=== PATIENT | female | born 1940 | race Caucasian/White ===

== ENCOUNTER 2020-08-19 20:46 | Inpatient (IN) ==
[2020-08-19] MEDS ORDERED: Propofol 10 mg/ml 100 ML BTL 100 ML ONE (20:53)
[2020-08-19] MEDS ORDERED: fentaNYL 100 mcg/2 ml 50 MCG/ML VIAL ONE (20:53)
[2020-08-19] MEDS: fentaNYL 100 mcg/2 ml 50 MCG/ML VIAL IV ONE (20:54)
[2020-08-19] MEDS ORDERED: NS 0.9% 1000 ml BAG 1,000 ML IV ONE (20:59)
[2020-08-19] MEDS ORDERED: Rocuronium 50 mg VIAL 10 mg/ml 5 ml VIAL (50 mg) IV ONE (21:00)
[2020-08-19] MEDS ORDERED: Etomidate 20 mg/10 ml 2 MG/ML 10 ml VIAL IV ONE (21:00)
[2020-08-19] MEDS ORDERED: Propofol 10 mg/ml 100 ML BTL 100 ML IV ONE (21:01)
[2020-08-19] MEDS ORDERED: Atropine 0.1 MG/ML 10 ml SYR (1 mg) IV PUSH ONE (21:03)
[2020-08-19 21:25] LABS: ABS Basophils 0.1 10^3/ul (0-0.2); ABS Eosinophils 0.3 10^3/ul (0-0.6); ABS Lymphocytes 4.9 10^3/ul (1.0-4.8); ABS Monocytes 1.1 10^3/ul (0-0.8); ABS Neutrophils 5.9 10^3/ul (1.5-7.7); Eosinophil % 2.7 %; Hematocrit 33 % (35-47); Hemoglobin 10.9 g/dL (12.0-16.0); Lymphocyte % 39.6 %; Mean Corpuscular HGB Conc 33 g/dL (31-36); Mean Corpuscular Hemoglobin 32 pg (27-31); Mean Corpuscular Volume 96 fL (80-97); Mean Platelet Volume 8.2 fL (7.4-10.4); Platelet Count 475 10^3/uL (150-450); Red Cell Distribution Width 18 % (10-15); White Blood Count 12.3 10^3/uL (3.5-10.8)
[2020-08-19 21:27] LABS: INR 1.68 (0.82-1.09)
[2020-08-19 21:41] LABS: ALT 78 U/L (7-52); AST 53 U/L (13-39); Albumin/Globulin Ratio 1.1 (1-3); Alkaline Phosphatase 205 U/L (34-104); BUN/Creatinine Ratio 27.4 (8-20); Blood Urea Nitrogen 51 mg/dL (6-24); C Reactive Protein 24.32 mg/L (<8.01); Calcium 8.9 mg/dL (8.6-10.3); Chloride 92 mmol/L (101-111); EGFR African American 31.6 (>60); EGFR Non-African American 26.1 (>60); Globulin 3.5 g/dL (2-4); Glucose 311 mg/dL (70-100); Sodium 122 mmol/L (135-145); Total Protein 7.5 g/dL (6.4-8.9)
[2020-08-19 21:44] LABS: Anion Gap 16 mmol/L (2-11); CO2 Carbon Dioxide 14 mmol/L (22-32); Potassium 6.5 mmol/L (3.5-5.0)
[2020-08-19] MEDS ORDERED: Calcium Gluconate 2 GM in NS 0.9% 100 ml BAG 100 ML IV ONE (21:49)
[2020-08-19] MEDS ORDERED: Dextrose 50% Syringe 50 ml 25 GM/50 ML SYRINGE IV PUSH ONE ×2 (21:50→23:04)
[2020-08-19] MEDS ORDERED: Atropine 0.1 MG/ML 10 ml SYR (1 mg) ONE (21:55)
[2020-08-19] MEDS ORDERED: Lidocaine 1% VIAL 10 MG/ML VIAL ONE (22:24)
[2020-08-19] MEDS ORDERED: Heparin 2 UNITS/ML 1000 mls 1,000 ML IV ONE (22:24)
[2020-08-19 22:33] LABS: Troponin I 0.04 ng/mL (<0.03)
[2020-08-19] MEDS ORDERED: Vancomycin 1,000 MG in NS 0.9% 250 ml 250 ML IVPB ONE (22:52)
[2020-08-19 23:32] LABS: % Iron Saturation 12 % (15-55); Digoxin 1.5 ng/ml (0.8-2.0); Iron 42 ug/dL (50-212); Total Iron Binding Capacity 354 mcg/dL (250-450); Transferrin 253 mg/dL (203-362); Unsaturated Iron Binding < 339 ug/dL
[2020-08-20] MEDS ORDERED: Lactated Ringers 1000 ml BAG 1,000 ML IV ONE (00:08)
[2020-08-20] MEDS ORDERED: Midazolam 5 mg/5 ml VIAL 1 mg/ml 5 ml VIAL (5 mg) ONE (00:14)
[2020-08-20] MEDS ORDERED: fentaNYL 100 mcg/2 ml 50 MCG/ML VIAL IV SLOW PU PRN ×2 (00:44→21:54)
[2020-08-20 00:46] LABS: Creatine Kinase 41 U/L (10-223)
[2020-08-20] MEDS ORDERED: Sodium Bicarb 8.4% Vial 50 ML 150 MEQ in D5W 1000 ml BAG 850 ML IV SCH (01:00)
[2020-08-20 01:19] LABS: ABS Lymphocytes 0.7 10^3/ul (1.0-4.8); ABS Monocytes 1.1 10^3/ul (0-0.8); ABS Neutrophils 9.7 10^3/ul (1.5-7.7); Eosinophil % 0.1 %; Hematocrit 27 % (35-47); Hemoglobin 9.3 g/dL (12.0-16.0); Lymphocyte % 5.9 %; Mean Corpuscular HGB Conc 34 g/dL (31-36); Mean Corpuscular Hemoglobin 32 pg (27-31); Mean Corpuscular Volume 93 fL (80-97); Mean Platelet Volume 7.5 fL (7.4-10.4); Platelet Count 374 10^3/uL (150-450); Red Blood Count 2.92 10^6 /uL (3.70-4.87); Red Cell Distribution Width 18 % (10-15); White Blood Count 11.5 10^3/uL (3.5-10.8)
[2020-08-20 01:28] LABS: INR 1.74 (0.82-1.09)
[2020-08-20 01:36] LABS: ALT 106 U/L (7-52); AST 109 U/L (13-39); Albumin 3.6 g/dL (3.2-5.2); Albumin/Globulin Ratio 1.1 (1-3); Alkaline Phosphatase 270 U/L (34-104); Blood Urea Nitrogen 58 mg/dL (6-24); CO2 Carbon Dioxide 18 mmol/L (22-32); Calcium 8.1 mg/dL (8.6-10.3); Chloride 91 mmol/L (101-111); EGFR African American 29.1 (>60); Globulin 3.4 g/dL (2-4); Glucose 364 mg/dL (70-100); Magnesium 2.4 mg/dL (1.9-2.7); Phosphorus 7.4 mg/dL (2.5-5.0); Sodium 121 mmol/L (135-145)
[2020-08-20] MEDS: Meropenem 1 GM PREMIX(*) 1 GM/50 ML BAG IV SCH ×3 (01:38→23:41)
[2020-08-20 01:48] LABS: Anion Gap 12 mmol/L (2-11); Potassium 6.5 mmol/L (3.5-5.0); Troponin I 0.13 ng/mL (<0.03)
[2020-08-20] MEDS ORDERED: SODIUM ZIRCONIUM CYCLOSILICATE 10 GM PACKET PO ONE ×2 (04:00→17:27)
[2020-08-20] MEDS ORDERED: Vancomycin per Pharmacy 1 EA NOTE FOLLOW UP PRN (04:05)
[2020-08-20 04:27] LABS: Urine Appearance Cloudy; Urine Bilirubin Negative (Negative); Urine Blood Negative (Negative); Urine Color Yellow; Urine Glucose Negative (Negative); Urine Ketones Negative (Negative); Urine Nitrite Negative (Negative); Urine Protein Negative (Negative); Urine Specific Gravity 1.011 (1.010-1.030); Urine Urobilinogen Negative (Negative)
[2020-08-20] MEDS ORDERED: Senna TAB 8.6 mg TAB PO PRN (04:41)
[2020-08-20 04:43] LABS: Urine Potassium Concentration 58.6 mmol/L
[2020-08-20] MEDS ORDERED: Insulin Infusion 100unit/100mL 100 UNIT/100 ML BAG IV SCH (05:00)
[2020-08-20 05:12] LABS: TSH Ultra Thyroid Stim Horm 7.26 mcIU/mL (0.34-5.60)
[2020-08-20 05:35] LABS: ABS Lymphocytes 0.7 10^3/ul (1.0-4.8); ABS Monocytes 0.8 10^3/ul (0-0.8); ABS Neutrophils 7.7 10^3/ul (1.5-7.7); Eosinophil % 0.1 %; Hematocrit 26 % (35-47); Hemoglobin 8.8 g/dL (12.0-16.0); Lymphocyte % 7.3 %; Mean Corpuscular HGB Conc 34 g/dL (31-36); Mean Corpuscular Hemoglobin 31 pg (27-31); Mean Corpuscular Volume 93 fL (80-97); Mean Platelet Volume 7.1 fL (7.4-10.4); Platelet Count 340 10^3/uL (150-450); Red Blood Count 2.82 10^6 /uL (3.70-4.87); Red Cell Distribution Width 18 % (10-15); White Blood Count 9.2 10^3/uL (3.5-10.8)
[2020-08-20] MEDS: Propofol 10 mg/ml 100 ML BTL 100 ML IV SCH ×4 (05:37→23:25)
[2020-08-20 05:54] LABS: Albumin 3.3 g/dL (3.2-5.2); Albumin/Globulin Ratio 1.1 (1-3); BUN/Creatinine Ratio 29.4 (8-20); Calcium 8.3 mg/dL (8.6-10.3); EGFR African American 32.8 (>60); EGFR Non-African American 27.1 (>60); Globulin 2.9 g/dL (2-4); Total Bilirubin 0.4 mg/dL (0.2-1.0); Total Protein 6.2 g/dL (6.4-8.9)
[2020-08-20] MEDS ORDERED: Heparin 5000 UNITS/ML 1 mL VIAL SUBCUT SCH (06:00)
[2020-08-20 06:03] LABS: Potassium 5.8 mmol/L (3.5-5.0)
[2020-08-20] MEDS ORDERED: Hydrocortisone INJ 100 MG/2ML 2 ML VIAL IV SCH (07:00)
[2020-08-20] MEDS ORDERED: Hydrocortisone INJ 100 MG/2ML 2 ML VIAL IV ONE (07:23)
[2020-08-20] MEDS: Heparin DRIP 25,000 UNITS BAG 25,000 UNITS/500 ML BAG IV SCH (09:00)
[2020-08-20] MEDS: Albuterol/Ipratropium NEB.SOL (2.5/0.5 MG) 3 ML NEB.SOLN INH SCH ×5 (09:00→22:46)
[2020-08-20] MEDS: Chlorhexidine MOUTHWASH 0.12% 15 ML UDC SWISH SPIT SCH ×3 (09:17→19:37)
[2020-08-20] MEDS ORDERED: Hydrocortisone INJ 100 MG/2ML 2 ML VIAL ONE (09:28)
[2020-08-20] MEDS ORDERED: NORMOSOL-R pH 7.4 1000 mL BAG 1,000 ML IV SCH (10:00)
[2020-08-20 10:06] LABS: CO2 Carbon Dioxide 20 mmol/L (22-32); Calcium 8.4 mg/dL (8.6-10.3); Chloride 94 mmol/L (101-111); Sodium 124 mmol/L (135-145)
[2020-08-20 10:11] LABS: Blood Urea Nitrogen 54 mg/dL (6-24); EGFR African American 32.8 (>60); EGFR Non-African American 27.1 (>60); Glucose 162 mg/dL (70-100)
[2020-08-20 10:16] LABS: Anion Gap 10 mmol/L (2-11); Potassium 5.3 mmol/L (3.5-5.0)
[2020-08-20] MEDS: EPINEPHRINE IV SCH (11:13)
[2020-08-20] MEDS: NS 0.9% IV SCH (11:13)
[2020-08-20 12:14] LABS: Troponin I 0.11 ng/mL (<0.03)
[2020-08-20 16:14] LABS: BUN/Creatinine Ratio 30.5 (8-20); Calcium 8.4 mg/dL (8.6-10.3); EGFR African American 35.8 (>60); EGFR Non-African American 29.6 (>60)
[2020-08-20 16:15] LABS: Potassium 5.5 mmol/L (3.5-5.0)
[2020-08-20] MEDS: Hydrocortisone INJ 100 MG/2ML 2 ML VIAL IV SCH (17:15)
[2020-08-20 17:59] LABS: Influenza A Molecular Negative (Negative); Influenza B Molecular Negative (Negative)
[2020-08-20] MEDS: fentaNYL 100 mcg/2 ml 50 MCG/ML VIAL IV ONE (22:14)
[2020-08-20] MEDS ORDERED: LORazepam 2 mg VIAL 1 ml IV PUSH ONE (23:00)
[2020-08-20] MEDS ORDERED: Lorazepam PYXIS KEY PRN ×2 (23:00→23:03)
[2020-08-20] MEDS ORDERED: Dexmedetomidine 1,000 MCG in NS 0.9% 250 ml 240 ML IV SCH (23:00)
[2020-08-20] MEDS ORDERED: LORazepam 2 mg VIAL 1 ml IV PUSH PRN (23:03)
[2020-08-21] MEDS: Insulin GLARGINE 100 un/ml 10 ml VIAL SUBCUT SCH ×2 (00:10→20:32)
[2020-08-21] MEDS: Hydrocortisone INJ 100 MG/2ML 2 ML VIAL IV SCH ×4 (00:10→23:44)
[2020-08-21] MEDS: Albuterol/Ipratropium NEB.SOL (2.5/0.5 MG) 3 ML NEB.SOLN INH SCH ×6 (03:11→23:58)
[2020-08-21 03:44] LABS: Hematocrit 25 % (35-47); Hemoglobin 8.3 g/dL (12.0-16.0); Mean Corpuscular HGB Conc 33 g/dL (31-36); Mean Corpuscular Hemoglobin 31 pg (27-31); Mean Corpuscular Volume 93 fL (80-97); Mean Platelet Volume 7.5 fL (7.4-10.4); Platelet Count 319 10^3/uL (150-450); Red Blood Count 2.71 10^6 /uL (3.70-4.87); Red Cell Distribution Width 18 % (10-15); White Blood Count 6.1 10^3/uL (3.5-10.8)
[2020-08-21 04:00] LABS: Albumin 3.2 g/dL (3.2-5.2); BUN/Creatinine Ratio 34.2 (8-20); Calcium 8.9 mg/dL (8.6-10.3); EGFR African American 39.9 (>60); Globulin 3.2 g/dL (2-4); Magnesium 2.2 mg/dL (1.9-2.7); Potassium 4.7 mmol/L (3.5-5.0); Total Bilirubin 0.4 mg/dL (0.2-1.0); Total Protein 6.4 g/dL (6.4-8.9)
[2020-08-21 04:04] LABS: Vancomycin Random 8.2 mcg/mL
[2020-08-21 05:44] LABS: Activated Partial Thrombo Time 68.2 seconds (26.0-38.0); INR 1.92 (0.82-1.09)
[2020-08-21] MEDS ORDERED: Vancomycin Random Level NOTE FOLLOW UP ONE (06:00)
[2020-08-21] MEDS: Vancomycin 750 MG in NS 0.9% 250 ML IVPB SCH (06:07)
[2020-08-21] MEDS: EPINEPHRINE IV SCH (07:55)
[2020-08-21] MEDS: NS 0.9% IV SCH (07:55)
[2020-08-21] MEDS ORDERED: Furosemide 20 mg/2 ml IV VIAL IV ONE (09:05)
[2020-08-21] MEDS: Chlorhexidine MOUTHWASH 0.12% 15 ML UDC SWISH SPIT SCH ×2 (10:34→16:04)
[2020-08-21] MEDS ORDERED: Furosemide 40 mg/4 ml IV VIAL IV ONE (12:38)
[2020-08-21] MEDS: Meropenem 1 GM PREMIX(*) 1 GM/50 ML BAG IV SCH ×2 (12:48→23:56)
[2020-08-21] MEDS ORDERED: Acetaminophen IV 1 GM/100ML 1,000 MG/100 ML VIAL IVPB ONE (15:02)
[2020-08-21] MEDS ORDERED: Norepinephrine 16MCG/ML IVPRE 4,000 MCG/250 ML BAG IV SCH ×2 (16:00→17:21)
[2020-08-21] MEDS: Heparin DRIP 25,000 UNITS BAG 25,000 UNITS/500 ML BAG IV SCH (17:34)
[2020-08-21] MEDS: Collagenase 250 units/gm OINT 1 tube TOPICAL SCH (20:24)
[2020-08-21] MEDS ORDERED: Acetaminophen IV 1 GM/100ML 100 ML IVPB ONE (23:19)
[2020-08-22] MEDS: Albuterol/Ipratropium NEB.SOL (2.5/0.5 MG) 3 ML NEB.SOLN INH SCH ×4 (03:30→19:45)
[2020-08-22 04:11] LABS: Hematocrit 23 % (35-47); Hemoglobin 7.9 g/dL (12.0-16.0); Mean Corpuscular HGB Conc 34 g/dL (31-36); Mean Corpuscular Hemoglobin 31 pg (27-31); Mean Corpuscular Volume 91 fL (80-97); Mean Platelet Volume 7.4 fL (7.4-10.4); Platelet Count 307 10^3/uL (150-450); Red Blood Count 2.56 10^6 /uL (3.70-4.87); Red Cell Distribution Width 18 % (10-15); White Blood Count 7.3 10^3/uL (3.5-10.8)
[2020-08-22 04:21] LABS: Activated Partial Thrombo Time 52.3 seconds (26.0-38.0); INR 1.99 (0.82-1.09)
[2020-08-22 04:23] LABS: Albumin 3.1 g/dL (3.2-5.2); Calcium 8.5 mg/dL (8.6-10.3); Magnesium 2.1 mg/dL (1.9-2.7); Potassium 3.5 mmol/L (3.5-5.0); Total Bilirubin 0.4 mg/dL (0.2-1.0)
[2020-08-22 04:29] LABS: Albumin/Globulin Ratio 1.1 (1-3); BUN/Creatinine Ratio 36.9 (8-20); EGFR African American 47.8 (>60); EGFR Non-African American 39.5 (>60); Globulin 2.9 g/dL (2-4); Phosphorus 4.7 mg/dL (2.5-5.0)
[2020-08-22] MEDS: KCL 10 MEQ/50 ML IVPREMIX 10 MEQ/50 ML BAG IV SCH ×2 (05:02→06:16)
[2020-08-22] MEDS: Vancomycin 750 MG in NS 0.9% 250 ML IVPB SCH (05:12)
[2020-08-22] MEDS: Hydrocortisone INJ 100 MG/2ML 2 ML VIAL IV SCH (07:40)
[2020-08-22] MEDS: Collagenase 250 units/gm OINT 1 tube TOPICAL SCH (07:40)
[2020-08-22] MEDS ORDERED: Potassium Chlor 20 meq TAB.ER PO ONE (09:11)
[2020-08-22] MEDS ORDERED: Iohexol 300 (CONTRAST) 10 ML SDV ONE (12:56)
[2020-08-22] MEDS ORDERED: ceFAZolin VIAL 1 GM in NS 0.9% 50 ML 50 ML IVPB ONE (13:34)
[2020-08-22] MEDS: ROSUVASTATIN 20 MG PO SCH (19:50)
[2020-08-22 20:42] LABS: Hematocrit 27 % (35-47); Hemoglobin 9.1 g/dL (12.0-16.0)
[2020-08-22] MEDS: Heparin 5000 UNITS/ML 1 mL VIAL IV SCH (21:23)
[2020-08-22] MEDS: Insulin GLARGINE 100 un/ml 10 ml VIAL SUBCUT SCH (21:26)
[2020-08-22] MEDS: Heparin DRIP 25,000 UNITS BAG 25,000 UNITS/500 ML BAG IV SCH (23:39)
[2020-08-23] MEDS: Albuterol/Ipratropium NEB.SOL (2.5/0.5 MG) 3 ML NEB.SOLN INH SCH ×4 (00:56→19:43)
[2020-08-23 04:31] LABS: Hematocrit 24 % (35-47); Hemoglobin 7.9 g/dL (12.0-16.0); Mean Corpuscular HGB Conc 33 g/dL (31-36); Mean Corpuscular Hemoglobin 31 pg (27-31); Mean Corpuscular Volume 93 fL (80-97); Mean Platelet Volume 7.7 fL (7.4-10.4); Platelet Count 321 10^3/uL (150-450); Red Blood Count 2.56 10^6 /uL (3.70-4.87); Red Cell Distribution Width 18 % (10-15); White Blood Count 7.2 10^3/uL (3.5-10.8)
[2020-08-23 04:42] LABS: Activated Partial Thrombo Time 86.5 seconds (26.0-38.0); INR 1.84 (0.82-1.09)
[2020-08-23 04:46] LABS: Albumin 3.3 g/dL (3.2-5.2); Albumin/Globulin Ratio 1.3 (1-3); BUN/Creatinine Ratio 42.5 (8-20); Calcium 8.5 mg/dL (8.6-10.3); EGFR African American 52.4 (>60); EGFR Non-African American 43.3 (>60); Globulin 2.6 g/dL (2-4); Magnesium 2.2 mg/dL (1.9-2.7); Phosphorus 3.8 mg/dL (2.5-5.0); Potassium 4.2 mmol/L (3.5-5.0); Total Bilirubin 0.5 mg/dL (0.2-1.0); Total Protein 5.9 g/dL (6.4-8.9)
[2020-08-23] MEDS ORDERED: Vancomycin Trough Check NOTE FOLLOW UP ONE (05:30)
[2020-08-23] MEDS: Collagenase 250 units/gm OINT 1 tube TOPICAL SCH (07:39)
[2020-08-23] MEDS ORDERED: Metoprolol Tartrate 5 mg VIAL 5 ml VIAL (1 mg/ml) IV PRN (08:04)
[2020-08-23] MEDS: Heparin 5000 UNITS/ML 1 mL VIAL IV SCH (11:34)
[2020-08-23] MEDS: ROSUVASTATIN 20 MG PO SCH (18:36)
[2020-08-23] MEDS ORDERED: Albuterol/Ipratropium NEB.SOL (2.5/0.5 MG) 3 ML NEB.SOLN INH PRN (19:45)
[2020-08-23] MEDS: Pantoprazole VIAL 40 MG VIAL IV SCH (20:48)
[2020-08-23] MEDS: Insulin GLARGINE 100 un/ml 10 ml VIAL SUBCUT SCH (20:49)
[2020-08-24] MEDS: Heparin DRIP 25,000 UNITS BAG 25,000 UNITS/500 ML BAG IV SCH (02:35)
[2020-08-24 07:05] LABS: BUN/Creatinine Ratio 41.8 (8-20); Calcium 8.7 mg/dL (8.6-10.3); EGFR African American 66.2 (>60); EGFR Non-African American 54.7 (>60); Potassium 4.8 mmol/L (3.5-5.0)
[2020-08-24 07:53] LABS: Hematocrit 23 % (35-47); Hemoglobin 7.6 g/dL (12.0-16.0); Mean Corpuscular HGB Conc 33 g/dL (31-36); Mean Corpuscular Hemoglobin 31 pg (27-31); Mean Corpuscular Volume 94 fL (80-97); Mean Platelet Volume 7.3 fL (7.4-10.4); Platelet Count 307 10^3/uL (150-450); Red Blood Count 2.47 10^6 /uL (3.70-4.87); Red Cell Distribution Width 18 % (10-15); White Blood Count 6.1 10^3/uL (3.5-10.8)
[2020-08-24 08:32] LABS: ABS Eosinophils 0.3 10^3/ul (0-0.6); ABS Lymphocytes 1.4 10^3/ul (1.0-4.8); ABS Monocytes 0.6 10^3/ul (0-0.8); ABS Neutrophils 3.8 10^3/ul (1.5-7.7); Eosinophil % 4.1 %
[2020-08-24] MEDS: Collagenase 250 units/gm OINT 1 tube TOPICAL SCH (08:37)
[2020-08-24] MEDS: Pantoprazole VIAL 40 MG VIAL IV SCH ×2 (08:38→20:34)
[2020-08-24] MEDS: ROSUVASTATIN 20 MG PO SCH (20:33)
[2020-08-24] MEDS: Insulin GLARGINE 100 un/ml 10 ml VIAL SUBCUT SCH (20:34)
[2020-08-25] MEDS ORDERED: NS 0.9% 1000 ml BAG 1,000 ML IV SCH (00:01)
[2020-08-25] MEDS: Dextrose 50% Syringe 50 ml 25 GM/50 ML SYRINGE IV PUSH PRN (06:26)
[2020-08-25 06:34] LABS: ABS Eosinophils 0.5 10^3/ul (0-0.6); ABS Lymphocytes 1.1 10^3/ul (1.0-4.8); ABS Monocytes 0.5 10^3/ul (0-0.8); ABS Neutrophils 4.2 10^3/ul (1.5-7.7); Hematocrit 24 % (35-47); Hemoglobin 7.9 g/dL (12.0-16.0); Lymphocyte % 16.9 %; Mean Corpuscular HGB Conc 33 g/dL (31-36); Mean Corpuscular Hemoglobin 31 pg (27-31); Mean Corpuscular Volume 93 fL (80-97); Platelet Count 317 10^3/uL (150-450); Red Blood Count 2.58 10^6 /uL (3.70-4.87); Red Cell Distribution Width 18 % (10-15); White Blood Count 6.4 10^3/uL (3.5-10.8)
[2020-08-25 06:51] LABS: Calcium 8.4 mg/dL (8.6-10.3); EGFR African American 78.1 (>60); EGFR Non-African American 64.5 (>60); Potassium 4.7 mmol/L (3.5-5.0)
[2020-08-25 06:58] LABS: INR 1.38 (0.82-1.09)
[2020-08-25] MEDS ORDERED: ceFAZolin VIAL 1 GM in NS *SYRINGE* 10 ML IVPB ONE (08:00)
[2020-08-25] MEDS ORDERED: ceFAZolin 2 GM PREMIX 2 GM/50 ML BAG IVPB ONE (08:00)
[2020-08-25] MEDS ORDERED: Midazolam 5 mg/5 ml VIAL 1 mg/ml 5 ml VIAL (5 mg) ONE (11:43)
[2020-08-25] MEDS ORDERED: Lidocaine 1% VIAL 10 MG/ML VIAL ONE (11:44)
[2020-08-25] MEDS ORDERED: fentaNYL 100 mcg/2 ml 50 MCG/ML VIAL ONE (11:44)
[2020-08-25] MEDS: Pantoprazole VIAL 40 MG VIAL IV SCH (15:24)
[2020-08-25] MEDS: Collagenase 250 units/gm OINT 1 tube TOPICAL SCH (16:21)
[2020-08-25] MEDS: ROSUVASTATIN 20 MG PO SCH (17:40)
[2020-08-25] MEDS: ceFAZolin VIAL 1 GM in NS 0.9% 50 ML 50 ML IVPB SCH (17:40)
[2020-08-25] MEDS: Insulin GLARGINE 100 un/ml 10 ml VIAL SUBCUT SCH (22:16)
[2020-08-25] MEDS: Heparin 5000 UNITS/ML 1 mL VIAL SUBCUT SCH (22:16)
[2020-08-26] MEDS: ceFAZolin VIAL 1 GM in NS 0.9% 50 ML 50 ML IVPB SCH ×2 (04:17→10:53)
[2020-08-26] MEDS: Heparin 5000 UNITS/ML 1 mL VIAL SUBCUT SCH ×3 (05:07→20:14)
[2020-08-26 07:33] LABS: ABS Basophils 0.1 10^3/ul (0-0.2); ABS Eosinophils 0.3 10^3/ul (0-0.6); ABS Lymphocytes 1.3 10^3/ul (1.0-4.8); ABS Monocytes 0.7 10^3/ul (0-0.8); ABS Neutrophils 5.3 10^3/ul (1.5-7.7); Eosinophil % 3.6 %; Hematocrit 24 % (35-47); Hemoglobin 7.9 g/dL (12.0-16.0); Lymphocyte % 17.3 %; Mean Corpuscular HGB Conc 33 g/dL (31-36); Mean Corpuscular Hemoglobin 31 pg (27-31); Mean Corpuscular Volume 93 fL (80-97); Mean Platelet Volume 7.8 fL (7.4-10.4); Platelet Count 337 10^3/uL (150-450); Red Blood Count 2.55 10^6 /uL (3.70-4.87); Red Cell Distribution Width 18 % (10-15); White Blood Count 7.6 10^3/uL (3.5-10.8)
[2020-08-26 07:45] LABS: BUN/Creatinine Ratio 32.9 (8-20); Calcium 8.4 mg/dL (8.6-10.3); EGFR African American 84.9 (>60); EGFR Non-African American 70.2 (>60); Magnesium 1.6 mg/dL (1.9-2.7); Potassium 4.6 mmol/L (3.5-5.0)
[2020-08-26] MEDS ORDERED: Magnesium Sulfate IV 3 GM in NS 0.9% 100 ml BAG 100 ML IVPB ONE (09:00)
[2020-08-26] MEDS: Collagenase 250 units/gm OINT 1 tube TOPICAL SCH ×2 (09:39→10:50)
[2020-08-26] MEDS ORDERED: PEG 3000 GI LAVAGE 1 GALLON PO ONE (17:30)
[2020-08-26] MEDS: ROSUVASTATIN 20 MG PO SCH (17:38)
[2020-08-26] MEDS ORDERED: Insulin GLARGINE 100 un/ml 10 ml VIAL SUBCUT ONE (21:00)
[2020-08-27] MEDS: Heparin 5000 UNITS/ML 1 mL VIAL SUBCUT SCH ×4 (05:36→23:29)
[2020-08-27 05:41] LABS: ABS Basophils 0.1 10^3/ul (0-0.2); ABS Eosinophils 0.3 10^3/ul (0-0.6); ABS Lymphocytes 1.3 10^3/ul (1.0-4.8); ABS Monocytes 0.7 10^3/ul (0-0.8); ABS Neutrophils 4.6 10^3/ul (1.5-7.7); Eosinophil % 3.8 %; Hematocrit 24 % (35-47); Hemoglobin 7.9 g/dL (12.0-16.0); Lymphocyte % 19.1 %; Mean Corpuscular HGB Conc 33 g/dL (31-36); Mean Corpuscular Hemoglobin 31 pg (27-31); Mean Corpuscular Volume 94 fL (80-97); Mean Platelet Volume 7.5 fL (7.4-10.4); Platelet Count 330 10^3/uL (150-450); Red Blood Count 2.55 10^6 /uL (3.70-4.87); Red Cell Distribution Width 18 % (10-15); White Blood Count 6.9 10^3/uL (3.5-10.8)
[2020-08-27] MEDS: Dextrose 50% Syringe 50 ml 25 GM/50 ML SYRINGE IV PUSH PRN (05:44)
[2020-08-27 05:56] LABS: BUN/Creatinine Ratio 33.8 (8-20); Calcium 8.4 mg/dL (8.6-10.3); EGFR African American 96.1 (>60); EGFR Non-African American 79.4 (>60); Potassium 4.1 mmol/L (3.5-5.0)
[2020-08-27] MEDS: Collagenase 250 units/gm OINT 1 tube TOPICAL SCH (11:26)
[2020-08-27] MEDS ORDERED: Midazolam 10 mg/10 ml VIAL 1 mg/ml 10 ml VIAL (10 mg) ONE (13:38)
[2020-08-27] MEDS ORDERED: fentaNYL 100 mcg/2 ml 50 MCG/ML VIAL ONE (13:39)
[2020-08-27] MEDS ORDERED: Warfarin per PHARMACY **NOTE FOLLOW UP SCH (18:00)
[2020-08-27] MEDS: ROSUVASTATIN 20 MG PO SCH (19:05)
[2020-08-27] MEDS ORDERED: Insulin GLARGINE 100 un/ml 10 ml VIAL SUBCUT SCH (21:00)
[2020-08-27] MEDS ORDERED: Enoxaparin 40 MG/0.4 ML SYR SUBCUT SCH (21:00)
[2020-08-28 06:48] LABS: ABS Basophils 0.1 10^3/ul (0-0.2); ABS Eosinophils 0.2 10^3/ul (0-0.6); ABS Monocytes 0.7 10^3/ul (0-0.8); ABS Neutrophils 5.2 10^3/ul (1.5-7.7); Eosinophil % 3.1 %; Hematocrit 21 % (35-47); Lymphocyte % 13.8 %; Mean Corpuscular HGB Conc 33 g/dL (31-36); Mean Corpuscular Hemoglobin 31 pg (27-31); Mean Corpuscular Volume 94 fL (80-97); Mean Platelet Volume 7.6 fL (7.4-10.4); Platelet Count 337 10^3/uL (150-450); Red Blood Count 2.27 10^6 /uL (3.70-4.87); Red Cell Distribution Width 18 % (10-15); White Blood Count 7.2 10^3/uL (3.5-10.8)
[2020-08-28 06:53] LABS: INR 1.31 (0.82-1.09)
[2020-08-28] MEDS: Heparin 5000 UNITS/ML 1 mL VIAL SUBCUT SCH ×2 (09:27→17:43)
[2020-08-28] MEDS: Collagenase 250 units/gm OINT 1 tube TOPICAL SCH (10:22)
[2020-08-28] MEDS ORDERED: Warfarin DAILY REMINDER **NOTE FOLLOW UP SCH (17:00)
[2020-08-28] MEDS: ROSUVASTATIN 20 MG PO SCH (17:59)
[2020-08-28] MEDS ORDERED: Insulin GLARGINE 100 un/ml 10 ml VIAL SUBCUT SCH (21:00)
[2020-08-29] MEDS: Heparin 5000 UNITS/ML 1 mL VIAL SUBCUT SCH ×4 (02:36→23:20)
[2020-08-29 05:36] LABS: ABS Basophils 0.1 10^3/ul (0-0.2); ABS Eosinophils 0.1 10^3/ul (0-0.6); ABS Lymphocytes 0.8 10^3/ul (1.0-4.8); ABS Monocytes 1.2 10^3/ul (0-0.8); ABS Neutrophils 13.6 10^3/ul (1.5-7.7); Eosinophil % 0.7 %; Hematocrit 25 % (35-47); Hemoglobin 8.4 g/dL (12.0-16.0); Lymphocyte % 4.8 %; Mean Corpuscular HGB Conc 34 g/dL (31-36); Mean Corpuscular Hemoglobin 31 pg (27-31); Mean Corpuscular Volume 92 fL (80-97); Mean Platelet Volume 7.7 fL (7.4-10.4); Platelet Count 320 10^3/uL (150-450); Red Cell Distribution Width 17 % (10-15); White Blood Count 15.7 10^3/uL (3.5-10.8)
[2020-08-29 05:54] LABS: BUN/Creatinine Ratio 24.7 (8-20); Calcium 8.4 mg/dL (8.6-10.3); EGFR Non-African American 61.2 (>60); Magnesium 1.5 mg/dL (1.9-2.7); Potassium 3.9 mmol/L (3.5-5.0)
[2020-08-29] MEDS: Collagenase 250 units/gm OINT 1 tube TOPICAL SCH (07:56)
[2020-08-29] MEDS ORDERED: Magnesium Sulfate IV 3 GM in NS 0.9% 100 ml BAG 100 ML IVPB ONE (09:00)
[2020-08-29] MEDS: ROSUVASTATIN 20 MG PO SCH (18:11)
[2020-08-29] MEDS: Insulin GLARGINE 100 un/ml 10 ml VIAL SUBCUT SCH (23:19)
[2020-08-30 06:30] LABS: ABS Basophils 0.1 10^3/ul (0-0.2); ABS Eosinophils 0.1 10^3/ul (0-0.6); ABS Lymphocytes 0.8 10^3/ul (1.0-4.8); ABS Monocytes 1.4 10^3/ul (0-0.8); ABS Neutrophils 13.7 10^3/ul (1.5-7.7); Eosinophil % 0.7 %; Hematocrit 24 % (35-47); Lymphocyte % 4.8 %; Mean Corpuscular HGB Conc 33 g/dL (31-36); Mean Corpuscular Hemoglobin 31 pg (27-31); Mean Corpuscular Volume 93 fL (80-97); Mean Platelet Volume 7.8 fL (7.4-10.4); Platelet Count 309 10^3/uL (150-450); Red Blood Count 2.58 10^6 /uL (3.70-4.87); Red Cell Distribution Width 17 % (10-15)
[2020-08-30 06:47] LABS: BUN/Creatinine Ratio 27.2 (8-20); Calcium 8.2 mg/dL (8.6-10.3); EGFR African American 71.3 (>60); EGFR Non-African American 58.9 (>60); Magnesium 1.9 mg/dL (1.9-2.7); Potassium 3.5 mmol/L (3.5-5.0)
[2020-08-30] MEDS: Collagenase 250 units/gm OINT 1 tube TOPICAL SCH (08:04)
[2020-08-30] MEDS: Heparin 5000 UNITS/ML 1 mL VIAL SUBCUT SCH ×2 (09:50→17:48)
[2020-08-30] MEDS: ROSUVASTATIN 20 MG PO SCH (17:48)
[2020-08-30] MEDS ORDERED: Potassium Chlor 20 meq TAB.ER PO ONE (19:27)
[2020-08-30] MEDS: Insulin GLARGINE 100 un/ml 10 ml VIAL SUBCUT SCH (20:36)
[2020-08-31] MEDS: Heparin 5000 UNITS/ML 1 mL VIAL SUBCUT SCH ×3 (00:50→18:28)
[2020-08-31 04:33] LABS: ABS Basophils 0.1 10^3/ul (0-0.2); ABS Eosinophils 0.3 10^3/ul (0-0.6); ABS Lymphocytes 0.9 10^3/ul (1.0-4.8); ABS Monocytes 0.6 10^3/ul (0-0.8); ABS Neutrophils 6.6 10^3/ul (1.5-7.7); Eosinophil % 3.4 %; Hematocrit 23 % (35-47); Hemoglobin 7.7 g/dL (12.0-16.0); Lymphocyte % 10.2 %; Mean Corpuscular HGB Conc 34 g/dL (31-36); Mean Corpuscular Hemoglobin 31 pg (27-31); Mean Corpuscular Volume 93 fL (80-97); Mean Platelet Volume 7.6 fL (7.4-10.4); Platelet Count 304 10^3/uL (150-450); Red Blood Count 2.47 10^6 /uL (3.70-4.87); Red Cell Distribution Width 17 % (10-15); White Blood Count 8.4 10^3/uL (3.5-10.8)
[2020-08-31 04:48] LABS: Albumin 2.8 g/dL (3.2-5.2); BUN/Creatinine Ratio 27.6 (8-20); EGFR Non-African American 62.8 (>60); Globulin 2.8 g/dL (2-4); Potassium 3.9 mmol/L (3.5-5.0); Total Bilirubin 0.5 mg/dL (0.2-1.0); Total Protein 5.6 g/dL (6.4-8.9)
[2020-08-31] MEDS: Collagenase 250 units/gm OINT 1 tube TOPICAL SCH (11:17)
[2020-08-31] MEDS: ROSUVASTATIN 20 MG PO SCH (18:30)
[2020-08-31] MEDS: Insulin GLARGINE 100 un/ml 10 ml VIAL SUBCUT SCH (22:41)
[2020-09-01] MEDS: Heparin 5000 UNITS/ML 1 mL VIAL SUBCUT SCH ×3 (00:42→18:15)
[2020-09-01 08:39] LABS: ABS Eosinophils 0.2 10^3/ul (0-0.6); ABS Lymphocytes 0.9 10^3/ul (1.0-4.8); ABS Monocytes 0.5 10^3/ul (0-0.8); ABS Neutrophils 5.2 10^3/ul (1.5-7.7); Eosinophil % 3.2 %; Hematocrit 24 % (35-47); Hemoglobin 7.9 g/dL (12.0-16.0); Lymphocyte % 13.1 %; Mean Corpuscular HGB Conc 34 g/dL (31-36); Mean Corpuscular Hemoglobin 31 pg (27-31); Mean Corpuscular Volume 92 fL (80-97); Mean Platelet Volume 7.1 fL (7.4-10.4); Platelet Count 318 10^3/uL (150-450); Red Blood Count 2.56 10^6 /uL (3.70-4.87); Red Cell Distribution Width 17 % (10-15); White Blood Count 6.8 10^3/uL (3.5-10.8)
[2020-09-01] MEDS: Collagenase 250 units/gm OINT 1 tube TOPICAL SCH (08:47)
[2020-09-01 08:55] LABS: BUN/Creatinine Ratio 26.9 (8-20); Calcium 8.4 mg/dL (8.6-10.3); EGFR African American 86.2 (>60); EGFR Non-African American 71.2 (>60); Potassium 4.3 mmol/L (3.5-5.0)
[2020-09-01] MEDS: ROSUVASTATIN 20 MG PO SCH (18:14)
[2020-09-01] MEDS: Insulin GLARGINE 100 un/ml 10 ml VIAL SUBCUT SCH (22:22)
[2020-09-02] MEDS: Heparin 5000 UNITS/ML 1 mL VIAL SUBCUT SCH ×3 (02:50→17:41)
[2020-09-02 05:42] LABS: ABS Eosinophils 0.2 10^3/ul (0-0.6); ABS Lymphocytes 1.1 10^3/ul (1.0-4.8); ABS Monocytes 0.6 10^3/ul (0-0.8); ABS Neutrophils 5.4 10^3/ul (1.5-7.7); Eosinophil % 3.2 %; Hematocrit 24 % (35-47); Hemoglobin 8.1 g/dL (12.0-16.0); Lymphocyte % 14.6 %; Mean Corpuscular HGB Conc 34 g/dL (31-36); Mean Corpuscular Hemoglobin 31 pg (27-31); Mean Corpuscular Volume 92 fL (80-97); Mean Platelet Volume 7.7 fL (7.4-10.4); Platelet Count 328 10^3/uL (150-450); Red Blood Count 2.58 10^6 /uL (3.70-4.87); Red Cell Distribution Width 17 % (10-15); White Blood Count 7.4 10^3/uL (3.5-10.8)
[2020-09-02 05:58] LABS: BUN/Creatinine Ratio 29.3 (8-20); Calcium 8.4 mg/dL (8.6-10.3); EGFR African American 90.2 (>60); EGFR Non-African American 74.5 (>60); Potassium 4.3 mmol/L (3.5-5.0)
[2020-09-02] MEDS: Collagenase 250 units/gm OINT 1 tube TOPICAL SCH (10:17)
[2020-09-02] MEDS: ROSUVASTATIN 20 MG PO SCH (17:41)
[2020-09-02] MEDS: Insulin GLARGINE 100 un/ml 10 ml VIAL SUBCUT SCH (21:33)
[2020-09-03] MEDS: Heparin 5000 UNITS/ML 1 mL VIAL SUBCUT SCH ×2 (00:26→09:39)
[2020-09-03 07:15] LABS: Hematocrit 23 % (35-47); Hemoglobin 7.8 g/dL (12.0-16.0); Mean Corpuscular HGB Conc 34 g/dL (31-36); Mean Corpuscular Hemoglobin 31 pg (27-31); Mean Corpuscular Volume 92 fL (80-97); Mean Platelet Volume 7.2 fL (7.4-10.4); Platelet Count 327 10^3/uL (150-450); Red Cell Distribution Width 17 % (10-15); White Blood Count 6.7 10^3/uL (3.5-10.8)
[2020-09-03 11:17] VITALS: BP 112/42
[2020-09-03] MEDS: Collagenase 250 units/gm OINT 1 tube TOPICAL SCH (15:28)
== END 2020-09-03 15:05 | DRG 242 ==
LOC: EDBD → ED 20:46 → ICU 22:41 → SUATTDRO 22:41 → MEDTELE 08-22 15:15 → MED 08-29 10:26
PROVIDERS: ADMIT Student in an Organized Health Care Education/Training Program; ATTEND Internal Medicine